=== PATIENT | male | born 1985 | race Caucasian/White ===

== ENCOUNTER 2020-10-01 15:59 | Emergency (ER) | payer BC ==
--- NOTE | 2020-10-01 16:20 | EDM.PDOC ---
ED HPI GENERAL MEDICAL PROBLEM - General Chief Complaint: Upper Extremity Injury/Pain Stated Complaint: INJURY TO LT HAND Time Seen by Provider: 10/01/20 16:00 Source of Information: Reports: Patient History Limitations: Reports: No Limitations - History of Present Illness INITIAL COMMENTS - FREE TEXT/NARRATIVE: 35-year-old male with no past medical history presenting with a left wrist injury. 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 He fell onto an outstretched left hand. Since then, he has had worsening pain to the left wrist and the proximal left fifth and third metacarpals. He denies any numbness or loss of sensation to left upper extremity. Denies any wounds. No other complaints or injuries. Past medical history: Reviewed, no additional pertinent history. Surgical history: Reviewed in system, no additional pertinent history. Social history: Reviewed in system, no additional pertinent history. Family history: Reviewed in system, no additional pertinent history. PHYSICAL EXAM Vital signs reviewed. Nursing notes reviewed. Constitutional: Awake, alert, non-distressed. Head: Normocephalic, atraumatic. Eyes: EOMI, conjunctiva normal, no discharge, no scleral icterus. Ears, Nose, Throat: External ears and nose normal, moist oral mucosa. Cardiovascular: 2+ left radial pulse, capillary refill less than 2 seconds in the left hand. Pulmonary: normal work of breathing, no accessory muscle use. Abdomen/GI: Soft, nontender, nondistended, no guarding or rigidity, no masses. Musculoskeletal: No deformities. Tenderness to palpation over the left carpal bones and the proximal aspect of the left third and fifth metacarpals. Limited active range of motion of the left wrist joint due to pain. No tenderness to palpation of the left anatomic snuffbox. Integumentary: Appropriate color for ethnicity, warm, dry, no pallor or jaundice, no rash. Neurologic: Alert, answering questions appropriately, normal speech, no facial droop, moving all extremities well. Normal sensation to the left ulnar, median, radial nerve distributions. Psychiatric: Appropriate mood and affect, normal thought process. This patient was seen and evaluated during the 2019 SARS-CoV-2 novel coronavirus pandemic period. Community viral transmission is ongoing at time of this encounter and the emergency department is operating under pandemic response procedures. left wrist Pain Score (Numeric/FACES): 4 - Related Data Allergies Allergy/AdvReac Type Severity Reaction Status Date / Time No Known Allergies Allergy Verified 10/01/20 16:37 Home Meds: Home Meds Acetaminophen [Acetaminophen Extra Strength] 500 - 1,000 mg PO Q6H PRN #30 tablet 10/01/20 [Rx] Ibuprofen 400 mg PO Q6H PRN #30 tablet 10/01/20 [Rx] Review of Systems - Review of Systems Review Of Systems: See Below ED EXAM, GENERAL - Physical Exam Exam: See Below ED TRAUMA EXTREMITY PROCEDURES - Splinting Left Upper Extremity Splint Site: Wrist Pre-Procedure NV Status: Normal Splint Material: Fiberglass, Sling Splint Design: Sugar Tong Applied & Form Fitted By: Provider Provider Post-Splint Application NV Check: NV Status Normal Complications: No Course - Vital Signs Text/Narrative:: Differential diagnosis includes but is not limited to: Fracture, dislocation, sprain, strain, soft tissue injury. Neurovascularly intact in the left upper extremity. Declined analgesic pain medications. X-rays demonstrated soft tissue swelling but no bony injury. Given the degree of tenderness, I was concerned about an occult fracture, so we pursued CT imaging of the left wrist which also did not demonstrate bony injury. Given the amount of tenderness the patient has in the left wrist joint, I am going to treat him for a ligamentous injury versus an occult fracture (would need MR imaging to identify - not available in ED). He was placed in a left sugar tong splint and given a simple sling. We will plan to refer him to orthopedic surgery clinic for follow-up in about a week for reevaluation. [id number] Tylenol and Motrin as needed for pain. Plan: Patient is stable to discharge home with outpatient orthopedic surgery clinic follow-up. Strict emergency department return precautions were provided, patient indicated understanding. All questions were answered prior to departure. Discharged in good condition. DME order: Arm sling, laterality: Left. Duration: 1 month. Last Recorded V/S: Last Vital Signs Temp 36.8 C 10/01/20 16:39 Pulse 86 10/01/20 19:11 Resp 16 10/01/20 19:11 BP 140/74 10/01/20 19:11 Pulse Ox 96 10/01/20 19:11 Departure - Departure Time of Disposition: 18:42 Disposition: Home, Self-Care 01 Condition: Good Clinical Impression: Left wrist injury Qualifiers: Encounter type: initial encounter Qualified Code(s): S69.92XA - Unspecified injury of left wrist, hand and finger(s), initial encounter - Discharge Information *PRESCRIPTION DRUG MONITORING PROGRAM REVIEWED*: Not Applicable *COPY OF PRESCRIPTION DRUG MONITORING REPORT IN PATIENT WU: Not Applicable Prescriptions: Acetaminophen [Acetaminophen Extra Strength] 500 - 1,000 mg PO Q6H PRN #30 tablet PRN Reason: Pain (Mild 1-3) Ibuprofen 400 mg PO Q6H PRN #30 tablet PRN Reason: Pain (Mild 1-3) Instructions: How To Use a Sling, Kqqn-[id number]-Indr, Wrist Splint, Adult Referrals: [facility] - Orthopaedics [Provider Group] - 1 Week (For reevaluation of left wrist injury.) Forms: ED Department Discharge Additional Instructions: You were seen in the emergency department for a left wrist injury. Your x-rays and CT scan did not demonstrate a broken bone but these were not perfect. Given the amount of pain and swelling that you have in the wrist joint we are going to presume that you have either a very small break or a ligamentous injury. We will place you in a splint and a sling and have you follow-up with the orthopedic surgery clinic in about 1 week for reevaluation. I recommend [id number] extra strength acetaminophen (1000 mg every 6 hours) and ibuprofen (400 mg every 6 hours) to help treat your pain. Warning signs to come back to the ER include: Worsening pain, numbness, swelling, or any other new or concerning symptoms. Please return the emergency department immediately if your symptoms worsen or if you feel worse. Thank you for choosing the [facility] emergency department in [place] for your medical needs today. It was a pleasure caring for you. The following information is given to patients seen in the emergency department who are being discharged. This information is to outline your options for follow-up care. We provide all patients seen in our emergency department with a follow-up referral. The need for follow-up, as well as the timing and circumstances, are variable depending upon the specifics of your emergency department visit. If you don't have a primary care physician on staff, we will provide you with a referral. We always advise you to contact your personal physician following an emergency department visit to inform them of the circumstance of the visit and for follow-up with them and/or the need for any referrals to a consulting specialist. The emergency department will also refer you to a specialist when appropriate. This referral assures that you have the opportunity for follow-up care with a specialist. All of these measure are taken in an effort to provide you with optimal care, which includes your follow-up. Under all circumstances we always encourage you to contact your private physician who remains a resource for coordinating your care. When calling for follow-up care, please make the office aware that this follow-up is from your recent emergency room visit. If for any reason you are refused follow-up, please contact the [facility] Emergency Department at and asked to speak to the emergency department charge nurse. If you do not have a primary care physician that is caring for you, you can contact these clinics below to set up an appointment to establish care: [facility] - Primary Care [address] [place] [id number] [facility] [address] [place] [id number]
--- NOTE | 2020-10-01 17:32 | CR ---
Indication: Fall on outstretched hand Comparison: None available. Technique: AP, Lateral, and Oblique views left wrist were obtained Findings: There is no displaced fracture or dislocation. The joint spaces are grossly preserved. There is questionable mild carpal soft tissue prominence. Impression: Mild soft tissue prominence without evidence of definite, displaced fracture. If pain and clinical symptoms continue, follow-up with MRI may be useful to assess for subtle edema or internal derangement. Dictated by Justin Pang MD @ Oct 01 2020 5:28PM Signed by Dr. Justin Pang @ Oct 01 2020 5:30PM
--- NOTE | 2020-10-01 18:22 | CT ---
HISTORY: Left wrist pain. Suspected fracture. TECHNIQUE: CT left wrist without contrast. COMPARISON: Wrist radiographs 10/01/2020. FINDINGS: No fracture. No dislocation. Joint spaces are maintained. 4 mm negative ulnar variance. No bone lesions. Mild subcutaneous fat stranding at the wrist. IMPRESSION: 1. No acute bone abnormality. 2. Mild fat stranding at the wrist may be from edema. Please note that all CT scans at this facility use dose modulation, iterative reconstruction, and/or weight-based dosing when appropriate to reduce radiation dose to as low as reasonably achievable. Dictated by David Rubio MD @ Oct 03 2020 10:23AM Signed by Dr. David Rubio @ Oct 03 2020 10:26AM
== END 2020-10-01 19:12 | disposition home or self-care (01) ==
LOC: MW.ED 15:59
DX: S69.92XA Unspecified injury of left wrist, hand and finger(s), initial encounter (principal); W17.89XA Other fall from one level to another, initial encounter
CPT/HCPCS: 29125; 73110-26-LT; 73110-LT; 73200-26-LT; 73200-LT; 99283; 99284-25

== ENCOUNTER 2021-06-13 19:55 | Emergency (ER) | payer BC ==
--- NOTE | 2021-06-13 22:28 | EDM.PDOC ---
ED HPI GENERAL MEDICAL PROBLEM - General Chief Complaint: Upper Extremity Injury/Pain Stated Complaint: RT HAND FINGER INJURY Time Seen by Provider: 06/13/21 21:54 Source of Information: Reports: Patient History Limitations: Reports: No Limitations - History of Present Illness INITIAL COMMENTS - FREE TEXT/NARRATIVE: 36M no relevant PMHx presents for finger injury. Patient was diving in swimming pool and hit his R 4th digit on bottom of pool during a dive. Notes overt deformity. Tried to reduce at home himself without success Right Finger-Ring Pain Score (Numeric/FACES): 4 - Related Data Allergies Allergy/AdvReac Type Severity Reaction Status Date / Time No Known Allergies Allergy Verified 06/13/21 21:41 Home Meds: Home Meds Acetaminophen [Acetaminophen Extra Strength] 500 - 1,000 mg PO Q6H PRN #30 tablet 10/01/20 [Rx] Ibuprofen 400 mg PO Q6H PRN #30 tablet 10/01/20 [Rx] Past Medical History - Past Health History Medical/Surgical History: Denies Medical/Surgical History - Infectious Disease History Infectious Disease History: Reports: None Social & Family History - Family History Family Medical History: No Pertinent Family History - Tobacco Use Tobacco Use Status *Q: Never Tobacco User - Caffeine Use Caffeine Use: Reports: None - Recreational Drug Use Recreational Drug Use: No Review of Systems - Review of Systems Review Of Systems: Comprehensive ROS is negative, except as noted in HPI. ED EXAM, GENERAL - Physical Exam Exam: See Below Exam Limited By: No Limitations General Appearance: Alert, WD/WN, No Apparent Distress Ears: Hearing Grossly Normal Throat/Mouth: Normal Voice, No Airway Compromise Head: Atraumatic, Normocephalic Neck: Normal Inspection Respiratory/Chest: No Respiratory Distress, No Accessory Muscle Use Cardiovascular: Normal Peripheral Pulses Extremities: Other (overt dislocation of R 4th PIP joint ) Neurological: Alert, Normal Cognition, Normal Gait Psychiatric: Normal Affect, Normal Mood Skin Exam: Warm, Dry, Intact, Normal Color Course - Vital Signs Last Recorded V/S: Last Vital Signs Temp 98.3 F 06/13/21 21:42 Pulse 62 06/13/21 21:42 Resp 16 06/13/21 21:42 BP 141/87 H 06/13/21 21:42 Pulse Ox 98 06/13/21 21:42 - Orders/Labs/Meds Orders: Active Orders 24 hr Category Date Time Status Splinting [RC] ASDIRECTED Care 06/13/21 22:26 Active Fingers Fourth Digit Rt F8 [CR] Stat Exams 06/13/21 22:19 Taken Meds: Medications Discontinued Medications Generic Name Dose Route Start Last Admin Trade Name Bryant PRN Reason Stop Dose Admin Lidocaine HCl 5 ml 06/13/21 21:58 06/13/21 22:05 Lidocaine 1% 5 Ml Sdv INJECT 06/13/21 21:59 5 ml ONETIME ONE Administration - Re-Assessments/Exams Free Text/Narrative Re-Assessment/Exam: 06/13/21 22:48 Fever successfully relocated on repeat imaging. Will base patient finger splint and discharge. Departure - Departure Time of Disposition: 22:48 Disposition: Home, Self-Care 01 Condition: Good Clinical Impression: Finger dislocation Qualifiers: Encounter type: initial encounter Qualified Code(s): S63.259A - Unspecified dislocation of unspecified finger, initial encounter - Discharge Information Instructions: Finger or Thumb Dislocation Referrals: Chinedu Banuelos MD [Primary Care Provider] - Forms: ED Department Discharge Additional Instructions: You were treated in the emergency department for a finger dislocation. We numbed the finger and got it back into place. You are placed in a finger splint which you should continue to wear for 4 to 6 weeks. You should follow-up with your primary care physician to ensure that it is healing properly before removing the splint. You can take the splint off to clean the finger. I thought I saw a small fracture in one of your finger bones but the radiologist does not rating it as a fracture. Regardless the treatment is the same, immobilization with a finger splint. The following information is given to patients seen in the emergency department who are being discharged to home. This information is to outline your options for follow-up care. We provide all patients seen in our emergency department with a follow-up referral. The need for follow-up, as well as the timing and circumstances, are variable depending upon the specifics of your emergency department visit. If you don't have a primary care physician on staff, we will provide you with a referral. We always advise you to contact your personal physician following an emergency department visit to inform them of the circumstance of the visit and for follow-up with them and/or the need for any referrals to a consulting specialist. The emergency department will also refer you to a specialist when appropriate. This referral assures that you have the opportunity for follow-up care with a specialist. All of these measure are taken in an effort to provide you with optimal care, which includes your follow-up. Under all circumstances we always encourage you to contact your private physician who remains a resource for coordinating your care. When calling for follow-up care, please make the office aware that this follow-up is from your recent emergency room visit. If for any reason you are refused follow-up, please contact the [facility] Emergency Department at and asked to speak to the emergency department charge nurse. Please follow up with your primary care physician. If you do not have a primary care physician, see below: [facility] [address] [place] [id number] [facility] [address] [place] [id number] [facility] - Pediatric Clinic [address] [place] [id number] Sepsis Event Note (ED) - Evaluation Sepsis Screening Result: No Definite Risk - Focused Exam Vital Signs: Vital Signs Temp Pulse Resp BP Pulse Ox 06/13/21 21:42 98.3 F 62 16 141/87 H 98 - My Orders Last 24 Hours: My Active Orders 06/13/21 22:19 Fingers Fourth Digit Rt F8 [CR] Stat 06/13/21 22:26 Splinting [RC] ASDIRECTED - Assessment/Plan Last 24 Hours: My Active Orders 06/13/21 22:19 Fingers Fourth Digit Rt F8 [CR] Stat 06/13/21 22:26 Splinting [RC] ASDIRECTED
--- NOTE | 2021-06-13 22:36 | CR ---
For Patients: As a result of the Cures Act, medical imaging exams and procedure reports are released immediately into your electronic medical record. You may view this report before your referring provider. If you have questions, please contact your health care provider. INDICATION: Finger pain following fall. TECHNIQUE: Finger radiograph 3 views right 4th COMPARISON: None FINDINGS: Bone: No acute fractures or aggressive bone lesions are identified. Joint: Laterally angulated dislocation of the 4th PIP joint is noted. Soft tissue: Unremarkable. No radiopaque foreign bodies are seen. IMPRESSION: 1. Laterally angulated dislocation of the 4th PIP joint is noted. Dictated by Victor Hugo Fuentes MD @ 06/13/2021 10:31:43 PM Dictated by: Victor Hugo Fuentes MD @ 06/13/2021 22:33:51 (Electronically Signed)
--- NOTE | 2021-06-13 22:48 | CR ---
For Patients: As a result of the Cures Act, medical imaging exams and procedure reports are released immediately into your electronic medical record. You may view this report before your referring provider. If you have questions, please contact your health care provider. INDICATION: Finger dislocation status post reduction TECHNIQUE: Finger radiograph 3 views right 4th COMPARISON: 06/13/2021 FINDINGS: Bone: No acute fractures or aggressive bone lesions are identified. Joint: The 4th PIP joint has been reduced to anatomic alignment. Soft tissue: Unremarkable. No radiopaque foreign bodies are seen. IMPRESSION: 1. The 4th PIP joint has been reduced to anatomic alignment. Dictated by Victor Hugo Fuentes MD @ 06/13/2021 10:46:43 PM Dictated by: Victor Hugo Fuentes MD @ 06/13/2021 22:46:47 (Electronically Signed)
== END 2021-06-13 23:15 | disposition home or self-care (01) ==
LOC: MW.ED 19:55
DX: S63.284A Dislocation of proximal interphalangeal joint of right ring finger, initial encounter (principal); W22.8XXA Striking against or struck by other objects, initial encounter
CPT/HCPCS: 26770; 73140-26-F8; 73140-F8; 99283-25